=== PATIENT | male | born 1980 | race Two or more races ===

== ENCOUNTER 2024-11-11 14:36 | Emergency (ER) | payer MEDICAID, SELFPAY ==
[2024-11-11 14:44] VITALS: BP 136/84; PULSE 82; RESP 19; TEMP 36.6; O2SAT 98
--- NOTE | 2024-11-11 14:53 | XR_ITS ---
Examination: Tibia-Fibula, right , 2 views Technique: Tibia-fibula AP lateral 2 views Date and time of exam: November 11, 2024 1500 hours INDICATIONS: Patient fell 2 months ago with injury to lower leg, lower leg pain. FINDINGS: Shaft of the tibia fibula intact Soft tissue swelling prepatellar prepatellar tendon IMPRESSION: Significant soft tissue swelling prepatellar and prepatellar tendon Recommend ultrasound soft tissue follow-up in this region and along the anterior margin of the upper tibia
--- NOTE | 2024-11-11 14:53 | XR_ITS ---
Examination: Knee, right , 3 views Technique: Knee AP, lateral, oblique 3 views Date and time of exam: November 11, 2024 1500 hours INDICATIONS: Patient fell 2 months ago with into the knee, knee pain. FINDINGS: Mild narrowing medial joint space Soft tissue swelling prepatellar and prepatellar tendon No acute fracture IMPRESSION: Consider ultrasound soft tissue prepatellar to exclude soft tissue hematoma or abscess
--- NOTE | 2024-11-11 14:54 | XR_ITS ---
Examination: Foot, right, 3 views Technique: AP, oblique, lateral views foot, 3 views Date and time of exam: November 11, 2024, 1500 hours INDICATIONS: Patient fell 2 months ago with injury to the foot, foot pain. FINDINGS: Prominent osteopenia Moderate narrowing first metatarsophalangeal joint Soft tissue swelling dorsum of the foot Plantar posterior bony calcaneal spurs Subtle radiolucency in the talus on the lateral view IMPRESSION: Subtle radiolucency in the talus on the lateral view, suggest CT scan ankle follow-up to exclude fracture of the talus
--- NOTE | 2024-11-11 14:54 | XR_ITS ---
Examination: Duplex scan of the lower extremity, unilateral right complete Date and time of exam: November 11, 2024, 1531 hours INDICATIONS: Patient fell 6 days ago with injury to the right leg, right leg swelling and pain Technique: Duplex scan of the extremity veins using B-mode/grayscale imaging and Doppler spectral analysis and color flow Attention is directed to internal echogenicity, compression and augmentation involving these veins, color flow assessment, spectral analysis Findings: Major deep venous structures in the extremity demonstrate normal course and caliber. There is no evidence of deep vein thrombosis. Normal color flow and spectral analysis Impression: Negative for DVT..
--- NOTE | 2024-11-11 14:55 | PD.EDRME ---
Rapid Medical Screening Exam RME Arrival date/time: 11/11/24 14:36 44-year-old male currently on Eliquis for a clotting factor disorder presents for complaints of right lower extremity swelling is here to rule out DVT Chief Complaint: Extremity Injury, Lower Time Seen by Provider: 11/11/24 14:48 Vital signs: Vital Signs Temperature 97.8 F 11/11/24 14:44 Pulse Rate 82 11/11/24 14:44 Respiratory Rate 19 11/11/24 14:44 Blood Pressure 136/84 H 11/11/24 14:44 Pulse Oximetry (%) 98 11/11/24 14:44 Oxygen Delivery Method Room Air 11/11/24 14:44
[2024-11-11 15:59] LABS: Basophils # (Auto) 0.0 Thou/mm3 (0.0-0.2); Basophils % (Auto) 1 % (0-2.5); Eosinophils # (Auto) 0.3 Thou/mm3 (0.0-0.5); Eosinophils % (Auto) 4 % (0-10); Hematocrit 40.2 % (41.0-53.0); Hemoglobin 13.7 g/dL (13.5-16.0); Immature Granulocytes Auto 0.02 Thou/mm3 (0.00-0.00); Lymphocytes # (Auto) 2.2 Thou/mm3 (1.0-4.8); Lymphocytes % (Auto) 26 % (10-50); Mean Corpuscular HGB Conc 34.1 g/dl (31.0-37.0); Mean Corpuscular Hemoglobin 31.4 pg (25.0-35.0); Mean Corpuscular Volume 92 fL (80-100); Monocytes # (Auto) 0.8 Thou/mm3 (0.0-0.8); Monocytes % (Auto) 9 % (0-12); Neutrophils # (Auto) 5.3 Thou/mm3 (1.8-7.7); Neutrophils % (Auto) 61 % (37-80); Nucleated Red Blood Cell # 0.00 Thou/mm3 (0.00-0.00); Nucleated Red Blood Cell % 0 /100 WBC (0); Platelet Count 201 Thou/mm3 (140-440); RDW Standard Deviation 46.2 fL (35.1-43.9); Red Blood Count 4.37 Miln/mm3 (4.50-5.90); White Blood Count 8.6 Thou/mm3 (3.8-10.6)
[2024-11-11 16:15] LABS: INR 1.0 (0.9-1.3); Partial Thromboplastin Time 30.5 Seconds (22.0-36.0); Prothrombin Time 10.5 Seconds (9.0-12.2)
[2024-11-11 16:19] LABS: Alanine Aminotransferase 50 U/L (10-49); Albumin, Serum 4.2 gm/dL (3.5-5.0); Albumin/Globulin Ratio 1.6 (1.2-2.2); Alkaline Phosphatase 107 U/L (46-116); Anion Gap 7 (7-16); Aspartate Amino Transferase 27 U/L (0-34); BUN/Creatinine Ratio 7 Ratio (12-20); Bilirubin,Total 0.9 mg/dL (0.3-1.2); Blood Urea Nitrogen 8 mg/dL (9-23); Calcium 8.8 mg/dL (8.3-10.6); Calcium (Corrected) 8.8 mg/dL (8.5-10.1); Carbon Dioxide 27.3 mMol/L (20.0-31.0); Chloride 110 mMol/L (98-107); Creatinine (Component) 1.1 mg/dL (0.6-1.3); Globulin 2.7 gm/dL (2.3-3.5); Glucose 88 mg/dL (74-106); Osmolality,Calculated 284 (275-295); Potassium 4.2 mMol/L (3.4-5.1); Sodium 144 mMol/L (136-145); Total Protein 6.9 gm/dL (5.7-8.2); eGFR > 60 See Note
--- NOTE | 2024-11-11 16:58 | PD.EDLOWEX ---
Lower Extremity Injury RME/HPI General Chief Complaint: Extremity Injury, Lower Stated Complaint: R/O BLOOD CLOT Time Seen by Provider: 11/11/24 14:48 Arrival date/time: 11/11/24 14:36 RME / HPI RME / HPI Narrative: 11/11/24 14:36 44-year-old male currently on Eliquis for a clotting factor disorder presents for complaints of right lower extremity swelling is here to rule out DVT DR. 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 Patient states he was bowling when he lost balance and fell forward, landing on his right knee. Pain described as pressure throbbing in sensation that is located most to the knee, gustafson, and down to the lateral aspect of right foot. States he has taken Tylenol at home with no improvement. No other injuries or complaints reported. Related Data Home Medications ?Medication ?Instructions ?Recorded ?Confirmed hydrocodone 5 mg-acetaminophen 500 1 tab PO BID PRN Pain 05/31/20 05/31/20 mg tablet nitrofurantoin 100 mg PO BID 05/31/20 05/31/20 monohydrate/macrocrystals 100 mg capsule (Macrobid) Previous Rx's ?Medication ?Instructions ?Recorded apixaban 5 mg (74 tabs) tablets in 5 mg PO BID #74 tabs 12/11/21 a dose pack (Eliquis DVT-PE Treat 30D Start) diclofenac epolamine 1.3 % 1 patch topical BID pain #30 ea 11/11/24 transdermal 12 hour patch tramadol 50 mg tablet 50 mg PO Q8H PRN pain #10 tabs 11/11/24 Allergies Allergy/AdvReac Type Severity Reaction Status Date / Time No Known Allergies Allergy Verified 11/11/24 14:38 Review of Systems Review of Systems Systems Reviewed: All systems reviewed, normal except as documented Past Medical History Past Medical History GASTROINTESTINAL: Positive Gastrointestinal Disorders and Gastroesophageal Reflux Disease GENITOURINARY: Positive Genitourinary Disorders and Kidney Stones (FOR THIS PROC) MUSCULOSKELETAL: Positive Musculoskeletal Disorders OTHER HISTORY: Positive Chicken Pox Family History FAMILY HISTORY: Positive Family Psychiatric Problems (MOTHER (DEPRESSION)), Family Cardiac Disorders (FATHER (NM),BROTHER (HTN)), Family Cancer (MOTHER (CERVICAL)) and Family Surgery (MOTHER,BROTHER) Social History SMOKING STATUS: Never smoker ED Exam Narrative Physical exam: Constitutional: Awake, alert, nontoxic, morbidly obese, no acute distress HEENT: NC, AT, EOMI Extremities: Significant swelling to the right lower extremity fro the knee down to the ankle, has baseline swelling to the left ankle, bruising to the dorsal aspect of the right foot near the base of second and fourth toes, pain to palpation to the base of the right toes, no pain to the heel or ankle, pain to the anterolateral aspect of the right lower leg and to the anterior aspect of the right knee, slight tenderness to the anterior right knee, no crepitus, no signs of increased heat, bruising to the medial aspect of the right knee, negative anterior posterior drawer test. Skin: Warm, dry, intact except as noted Course Quality Measures none Orders Category Date Time Status US venous doppler LE RT Stat Exams 11/11/24 14:54 Completed XR foot comp RT min 3V Stat Exams 11/11/24 14:54 Completed XR knee RT 3V Stat Exams 11/11/24 14:53 Completed XR tibia fibula RT 2V Stat Exams 11/11/24 14:53 Completed CBC Stat Lab 11/11/24 15:29 Completed Comprehensive Metabolic Panel Stat Lab 11/11/24 15:29 Completed Partial Thromboplastin Time Stat Lab 11/11/24 15:29 Completed Prothrombin Time with INR Stat Lab 11/11/24 15:29 Completed Vital Signs Vital signs: Vital Signs Temperature 97.8 F 11/11/24 14:44 Pulse Rate 82 11/11/24 14:44 Respiratory Rate 19 11/11/24 14:44 Blood Pressure 136/84 H 11/11/24 14:44 Pulse Oximetry (%) 98 11/11/24 14:44 Oxygen Delivery Method Room Air 11/11/24 14:44 Pulse ox is 98% on room air which is adequate. Extremity Injury, Lower MDM Narrative MDM Narrative:: Shala Mistry am scribing for and in the presence of Dr. Heart. Patient data External records reviewed:: [facility] previous records Clinical information provided by:: patient Social determinants that could affect healthcare access:: none Patient has the following chronic illnesses:: Hx of DVT on Eliquis How is presenting disease/condition affected by chronic disease/condition?: uneffected by Evaluation data The following diagnostics were reviewed and interpreted by me:: lab results and radiology exam(s) Lab and/or radiology exams considered but not ordered:: None Interpretation Summary: Ordering Physician: Tulio Hernandez NP, NP Date of Service: 11/11/24 Procedure(s): XR knee RT 3V Accession Number(s): [id number] cc: Tulio Hernandez NP, NP; Alfredo Canales MD; Nasreen Maxwell NP~ Examination: Knee, right , 3 views Technique: Knee AP, lateral, oblique 3 views Date and time of exam: November 11, 2024 1500 hours INDICATIONS: Patient fell 2 months ago with into the knee, knee pain. FINDINGS: Mild narrowing medial joint space Soft tissue swelling prepatellar and prepatellar tendon No acute fracture IMPRESSION: Consider ultrasound soft tissue prepatellar to exclude soft tissue hematoma or abscess Dictated By: Alfredo Canales MD Signed By: <Electronically signed by Alfredo Canales MD in [place]> 11/11/24 1533 Ordering Physician: Tulio Hernandez NP, NP Date of Service: 11/11/24 Procedure(s): XR tibia fibula RT 2V Accession Number(s): [id number] cc: Tulio Hernandez NP, NP; Alfredo Canales MD; Nasreen Maxwell NP~ Examination: Tibia-Fibula, right , 2 views Technique: Tibia-fibula AP lateral 2 views Date and time of exam: November 11, 2024 1500 hours INDICATIONS: Patient fell 2 months ago with injury to lower leg, lower leg pain. FINDINGS: Shaft of the tibia fibula intact Soft tissue swelling prepatellar prepatellar tendon IMPRESSION: Significant soft tissue swelling prepatellar and prepatellar tendon Recommend ultrasound soft tissue follow-up in this region and along the anterior margin of the upper tibia Dictated By: Alfredo Canales MD Signed By: <Electronically signed by Alfredo Canales MD in [place]> 11/11/24 1534 Ordering Physician: Tulio Hernandez NP, NP Date of Service: 11/11/24 Procedure(s): XR foot comp RT min 3V Accession Number(s): [id number] cc: Tulio Hernandez NP, NP; Alfredo Canales MD; Nasreen Maxwell NP~ Examination: Foot, right, 3 views Technique: AP, oblique, lateral views foot, 3 views Date and time of exam: November 11, 2024, 1500 hours INDICATIONS: Patient fell 2 months ago with injury to the foot, foot pain. FINDINGS: Prominent osteopenia Moderate narrowing first metatarsophalangeal joint Soft tissue swelling dorsum of the foot Plantar posterior bony calcaneal spurs Subtle radiolucency in the talus on the lateral view IMPRESSION: Subtle radiolucency in the talus on the lateral view, suggest CT scan ankle follow-up to exclude fracture of the talus Dictated By: Alfredo Canales MD Signed By: <Electronically signed by Alfredo Canales MD in [place]> 11/11/24 1532 Ordering Physician: Tulio Hernandez NP, NP Date of Service: 11/11/24 Procedure(s): US venous doppler LE RT Accession Number(s): [id number] cc: Tulio Hernandez NP, NP; Alfredo Canales MD; Nasreen Maxwell NP~ Examination: Duplex scan of the lower extremity, unilateral right complete Date and time of exam: November 11, 2024, 1531 hours INDICATIONS: Patient fell 6 days ago with injury to the right leg, right leg swelling and pain Technique: Duplex scan of the extremity veins using B-mode/grayscale imaging and Doppler spectral analysis and color flow Attention is directed to internal echogenicity, compression and augmentation involving these veins, color flow assessment, spectral analysis Findings: Major deep venous structures in the extremity demonstrate normal course and caliber. There is no evidence of deep vein thrombosis. Normal color flow and spectral analysis Impression: Negative for DVT.. Dictated By: Alfredo Canales MD Signed By: <Electronically signed by Alfredo Canales MD in [place]> 11/11/24 8658 Medications / Prescriptions Medications or Prescriptions considered but not ordered:: None Medication administrations:: See above Consultations Consultation(s) initiated? (list below): No Diagnosis Most likely diagnosis given after review of the tests above:: Strain of right knee Right lower extremity contusion Admission Indicated Admission indicated?: not indicated Admission Request Was there a request for admission?: No Disposition Plan Disposition Plan: Discharge Discharge Attestation Discharge Attestation: The patient and all family members were given an opportunity to ask questions and understood the discharge instructions. Discharge instructions specifically effects, indications for sooner follow up or return to the emergency department, and the expected course of current diagnosis. Patient condition: Stable Discharge Plan Plan Patient Disposition: HOME (Self Care) Patient condition on transfer: Stable Prescriptions/Referrals Prescriptions/Med Rec: New diclofenac epolamine 1.3 % patch 12 hour 1 patch topical BID Qty: 30 0RF tramadol 50 mg tablet 50 mg PO Q8H PRN (Reason: pain) Qty: 10 0RF No Action Vicodin 5-500 mg Tablet 1 tab PO BID PRN (Reason: Pain) nitrofurantoin monohyd/m-cryst [Macrobid] 100 mg Capsule 100 mg PO BID Eliquis DVT-PE Treat 30D Start 5 mg (74 tabs) tablets,dose pack 5 mg PO BID Qty: 74 0RF Referrals: Nasreen Maxwell ADULT CARE MANAGER [Primary Care Provider] - In 1 week Problem List Clinical Impression: Strain of right knee, Contusion of leg, right, Right foot sprain Patient/Caregiver Discharge Instructions Education Materials: Self-Care for Strains and Sprains, ED TRUONG Wrap, ED Contusion, Lower Extremity, ED Foot Sprain Additional Instructions: Some general health principles that can help you are the [place] principles: Nutrition (eat a plant-based diet, avoiding meats in general, avoiding highly processed foods) Exercise (Daily exercise/walks as tolerated) Water (Drink adequate fresh water to maintain hydration, concentrating on water rather than on soda, coffee, tea, juice, etc for hydration) [place] (Spend time - 15-20 minutes or so with skin exposed in the psychiatry adult physician and late evening sun for Vitamin D health benefits) [place] (Avoid alcohol, illicit drugs, caffeinated beverages, smoking, etc) Air (Deep breathing exercises in the early mornings in fresh air) Rest (Adequate rest at night, going to bed a few hours before midnight and avoiding all screens/television/loud music in the time right before going to bed, also avoiding heavy meals just prior to going to bed) Trust in God (Spend time daily in Bible study and prayer - health benefits in contemplation of God's true character) Additional resources that can benefit: [email or web address], look under resources and seminars. Print Language: Somali Stand Alone Forms: Jolene Award Info., Work/School Release, Patient Portal Info Letter
== END 2024-11-11 18:20 | disposition home or self-care (01) ==
PROVIDERS: Nurse Practitioner Primary Care; Emergency Provider Family Medicine; PCP Nurse Practitioner Family
DX: S80.11XA Contusion of right lower leg, initial encounter (principal); S93.601A Unspecified sprain of right foot, initial encounter; S90.121A Contusion of right lesser toe(s) without damage to nail, initial encounter; W18.30XA Fall on same level, unspecified, initial encounter; Y93.54 Activity, bowling
CPT/HCPCS: 36415; 73562; 73590; 73630; 80053; 85025; 85610; 85730; 93971; 99284

== ENCOUNTER → 2024-11-24 | Outpatient (CLI) | payer MEDICAID, SELFPAY ==
--- NOTE | 2024-11-24 16:12 | XR_ITS ---
EXAMINATION: CT right ankle without intravenous contrast Date and time: November 24, 2024 1649 hours INDICATIONS: Patient fell 2 months ago with injury to the ankle, persistent ankle pain and swelling, plain films foot November 11, 2024 subtle radiolucency in the talus on the lateral view TECHNIQUE AND FINDINGS: Multiple axial images of the ankle 2.0 mm slice thickness 2D sagittal and coronal reconstructions FINDINGS: Intact distal tibia distal fibula Old bone density at the fibular tip and tibial tip Dome of the talus is intact Calcaneus, cuboid, navicular, cuneiforms appear intact as well as the bases of the visualized metatarsals IMPRESSION: No acute fracture If ankle pain persists, consider MRI ankle without contrast follow-up
--- NOTE | 2024-11-24 16:13 | XR_ITS ---
EXAMINATION: CT foot without intravenous contrast 3D sagittal coronal reconstructions 3D reconstructions Date and time: November 24, 2024, 1649 hours INDICATIONS: Patient fell 3 months ago followed by foot pain and swelling TECHNIQUE AND FINDINGS: Multiple 2.0 mm slice thickness axial images of the right foot without intravenous contrast 2D sagittal coronal reconstructions 3D reconstructions Distal tibia and distal fibula intact No acute fracture of the talus, navicular cuneiforms or cuboid Metatarsals and digits appear intact No foreign body IMPRESSION: No acute foot fracture
--- NOTE | 2024-11-24 16:13 | XR_ITS ---
EXAMINATION: CT right knee without intravenous contrast 2D sagittal coronal reconstructions 3D reconstructions Date and time: November 24, 2024, 1643 hours INDICATIONS: Patient fell 3 months ago with injury of the knee, persistent knee pain Technique and findings: Multiple 2.0 mm axial images of the knee 2D sagittal and coronal reconstructions 3D bone reconstructions Distal femur including femoral condyles intact Chronic minor lateral subluxation of the patella, 9 mm Patella appears intact Tibial plateau tibial metaphyseal region fibular head and neck intact Minimal knee effusion Small hematoma anterior and lateral to the patella, 5 x 23 mm IMPRESSION: No acute fracture Mild chronic lateral subluxation of the patella Mild edema in the subcutaneous fatty tissues surrounding the knee Minimal fluid collection anterior and lateral to the patella, 5 mm in thickness, 23 mm mediolateral, consider small hematoma
== END | disposition home or self-care (01) ==
PROVIDERS: PCP Nurse Practitioner Family; Referring Provider Nurse Practitioner Family; Visit Provider Nurse Practitioner Family
DX: S99.921A Unspecified injury of right foot, initial encounter (principal); S83.011A Lateral subluxation of right patella, initial encounter; S99.911A Unspecified injury of right ankle, initial encounter; W19.XXXA Unspecified fall, initial encounter; R60.0 Localized edema
CPT/HCPCS: 73700